=== PATIENT | female | born 1995 | race African-American/Black ===

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

== ENCOUNTER 2020-10-23 14:50 | Emergency (ER) | payer MEDICAID, OTHER ==
[~2020-10-23] VITALS: Ht 167.6 cm; Wt 62.0 kg
[2020-10-23 15:04] VITALS: BP 127/87
== END 2020-10-23 17:29 | disposition home or self-care (01) ==
LOC: ER 14:50
DX: M79.645 Pain in left finger(s) (principal); Z88.5 Allergy status to narcotic agent
CPT/HCPCS: 99281